=== PATIENT | female | born 1960 | race Caucasian/White ===

== ENCOUNTER 2021-07-07 07:48 | Day surgery (SDC) | payer OTHER ==
[~2021-07-07] VITALS: Ht 162.6 cm; Wt 78.1 kg
== END 2021-07-30 23:59 | disposition home or self-care (01) ==
LOC: OUT 07:48 → 4NE 15:45 → OUT 07-30 23:59
PROVIDERS: ATTEND Neurological Surgery
DX: M43.16 Spondylolisthesis, lumbar region (principal); M54.16 Radiculopathy, lumbar region; D64.9 Anemia, unspecified; Z79.899 Other long term (current) drug therapy; Z72.89 Other problems related to lifestyle; Z20.822 Contact with and (suspected) exposure to COVID-19